=== PATIENT | female | born 1990 | race African-American/Black ===

== ENCOUNTER 2022-04-28 15:44 | Emergency (ER) | payer OTHER ==
[2022-04-28] MEDS ORDERED: Acetaminophen 500 MG TAB ONE (16:09)
[2022-04-28 16:14] LABS: Bilirubin Neg (Negative); Blood, Urine Negative (Negative); Clarity Clear (Clear); Glucose, Urine (Dipstick) Normal (Negative); Ketone, Urine Negative (Negative); Leukocyte Negative (Negative); Nitrite Negative (Negative); Protein, Urine (Dipstick) Negative (Neg-Trace); Specific Gravity, Urine 1.005 (1.002-1.036); Urobilinogen Normal mg/dL (Less than 2)
[2022-04-28 16:16] LABS: Pregnancy Test - Urine (BHCG) Negative (Negative); Pregu Control Background? CLEAR/WHITE (CLR/WHITE); Pregu Control Bar Appear? YES (CONTROL BAR); Specific Gravity 1.005 (1.002-1.036)
[2022-04-28] MEDS ORDERED: cefTRIAXone\\ROCEPHIN 500 MG VIAL ONE (17:21)
[2022-04-28] MEDS ORDERED: Lidocaine 1% (PF) 30 ML VIAL ONE (17:22)
[2022-04-29 10:34] LABS: Chlamydia by PCR Not Detected (NotDetected); GC by PCR Not Detected (NotDetected)
== END 2022-04-28 17:40 | disposition home or self-care (01) ==
LOC: CSHERS 15:44
DX: N89.8 Other specified noninflammatory disorders of vagina (principal); R10.30 Lower abdominal pain, unspecified; K21.9 Gastro-esophageal reflux disease without esophagitis
CPT/HCPCS: 81003; 81025; 87480; 87491; 87510; 87591; 87660; 96372; 99284; J0696; J2001

== ENCOUNTER 2022-09-17 18:53 | Emergency (ER) | payer OTHER | END 2022-09-17 19:23 | disposition home or self-care (01) | LOC: CSHERS 18:53 | DX: R12 Heartburn (principal); K21.9 Gastro-esophageal reflux disease without esophagitis; Z02.79 Encounter for issue of other medical certificate | CPT/HCPCS: 99283 ==

== ENCOUNTER 2023-09-03 03:24 | Emergency (ER) | payer OTHER | END 2023-09-03 04:06 | disposition home or self-care (01) | LOC: CSHERS 03:24 | DX: K61.1 Rectal abscess (principal); K21.9 Gastro-esophageal reflux disease without esophagitis | CPT/HCPCS: 99283 ==